=== PATIENT | male | born 1955 | race Caucasian/White ===

== ENCOUNTER 2025-02-25 07:36 | Outpatient (CLI) | payer MEDICARE ==
[2025-02-25 09:16] LABS: Estimated GFR - POC 72.0
[2025-02-25] MEDS ORDERED: Iopamidol 300 61% 100 ML VIAL FS ONE (11:28)
== END 2025-02-25 07:37 | disposition home or self-care (01) ==
LOC: CSHCT 07:36
PROVIDERS: ATTEND Urology
DX: C67.9 Malignant neoplasm of bladder, unspecified (principal); N32.89 Other specified disorders of bladder
CPT/HCPCS: 74178; 82565; Q9967